=== PATIENT | male | born 1960 | race Caucasian/White ===

== ENCOUNTER 2016-04-15 11:44 | Emergency (ER) | payer BC ==
--- NOTE | ~2016-04-15 | CT4 ---
[facility] A Service of [facility] RADIOLOGY TEXT RESULTS PATIENT: LORENZO PEÑA LOCATION: SED : 60 UNIT #: [id number] AGE: [address]: Howard Ribera MD SEX: M ORDER DR: [id number] [address] [address] [id number] E MR#: [id number] Acc #: [id number] NAME: LORENZO PEÑA : 1960 SEX: M STUDY DATE/TIME: 04/15/2016 12:32 UNIT: SED ROOM: STUDY DESCRIPTION: CT Abd and Pelv Wo Cont Attending Physician: Howard Ribera M.D. Ordering Physician: Howard Ribera M.D. Primary Care Physician: Emilia Beckford M.D. MEDICAL IMAGING REPORT This report is preliminary unless electronic signature is present. EXAM CT abdomen and pelvis without contrast INDICATIONS Left flank pain for 6 weeks, which is worsening. Previous appendectomy. COMPARISON No comparison TECHNIQUE Axial 3 mm images were obtained through the abdomen and pelvis without IV or oral contrast. This CT exam was performed with one or more of the following radiation dose reduction techniques: automatic exposure control, adjustment of mA and/or kV according to patient size, and iterative reconstruction. FINDINGS Lung bases are clear. The liver, spleen, pancreas and adrenal glands are normal. The gallbladder appears to contain a tiny 3 mm calcified stone. The kidneys are normal. No urinary stones are identified. The adrenal glands are normal. The aorta is normal in size. There is no adenopathy. The bowel is normal except for a few sigmoid diverticula. The bladder and prostate gland are normal. The bones are unremarkable. IMPRESSION 1. No urinary stones identified. 2. Tiny gallstone. 3. Otherwise normal. Dictated by... Sanjeev Rios M.D. [facility] A Service [facility] RADIOLOGY TEXT RESULTS PATIENT: LORENZO PEÑA LOCATION: SED : 60 UNIT #: [id number] AGE: [address]: Howadr Ribera MD SEX: M ORDER DR: THIS IS AN ELECTRONICALLY VERIFIED REPORT Sanjeev Rios M.D. at 04/16/2016 7:13 AM FEL/to TD: 04/15/2016 18:57 JOB #: [id number] MEDICAL IMAGING REPORT
[2016-04-15 12:02] LABS: URINE SOURCE CLEAN CATCH
[2016-04-15 12:05] LABS: BASOPHIL# 0.1 X10e3 (0-0.3); BASOPHIL% 0.8 % (0-2.5); EOSINOPHIL# 0.1 X10e3 (0-0.7); EOSINOPHIL% 1.7 % (0.0-7.0); HEMATOCRIT 43.6 % (38.0-50.0); HEMOGLOBIN 14.2 gm/dL (13.0-16.0); LYMPHOCYTE% 13.9 % (17.0-45.0); MEAN CELL VOLUME 85.5 FL (83-96); MEAN CORPUSCULAR HEMOGLOBIN 27.8 PG (28-34); MEAN CORPUSCULAR HGB CONC 32.5 g/dL (30-36); MEAN PLATELET VOLUME 7.3 FL (6.5-11.5); MONOCYTE# 0.6 X10e3 (0-1.0); MONOCYTE% 8.5 % (3.0-12.0); NEUTROPHIL# 5.3 X10e3 (1.5-7.1); NEUTROPHIL% 75.1 % (40-75); PLATELET COUNT 278 X10e3 (140-420); RED CELL DISTRIBUTION WIDTH 14.9 % (11.0-15.5)
[2016-04-15 12:07] LABS: URINE APPEARANCE CLEAR; URINE BILIRUBIN NEG (NEG); URINE BLOOD NEG (NEG); URINE COLOR YELLOW; URINE GLUCOSE NEG (NORM); URINE KETONE NEG (NEG); URINE LEUKOCYTE ESTERASE NEG (NEG); URINE NITRATE NEG (NEG); URINE PROTEIN NEG (NEG); URINE UROBILINOGEN 0.2 MG/DL (NORM)
[2016-04-15 12:07] LABS: DIFF IND NO
[2016-04-15 12:15] LABS: MICRO INDICATED? NO
[2016-04-15 12:27] LABS: ALKALINE PHOSPHATASE 61 U/L (32-92); ALT (SGPT) 19 U/L (10-40); AST (SGOT) 21 U/L (10-42); BILIRUBIN, DIRECT <0.1 mg/dL (0.0-0.2); BILIRUBIN,INDIRECT 0.4 mg/dL (0.0-0.9); BILIRUBIN,TOTAL 0.5 mg/dL (0.2-2.0); BLOOD UREA NITROGEN 18 mg/dL (9-23); CALCIUM SERUM 9.2 mg/dL (8.4-10.2); CARBON DIOXIDE 31 mmol/L (22-31); CHLORIDE 102 mmol/L (100-111); CREATININE SERUM 0.9 mg/dL (0.6-1.4); GLOM FILT RATE Estimated ABOVE60 mL/min (>60); GLUCOSE FASTING 68 mg/dL (70-110); LIPASE 144 U/L (22-51); POTASSIUM 4.1 mmol/L (3.5-5.1); SODIUM 139 mmol/L (135-145)
== END 2016-04-15 14:14 | disposition home or self-care (01) ==
LOC: SED 11:44
PROVIDERS: Emergency Medicine
DX: R10.9 Unspecified abdominal pain (principal)
CPT/HCPCS: 36415; 74176; 80048; 80076; 81003; 83690; 85025; 99284